=== PATIENT | male | born 1990 | race African-American/Black ===

== ENCOUNTER 2018-11-15 10:29 | Emergency (ER) | payer OTHER ==
[2018-11-15] MEDS ORDERED: ALBUTEROL 2.5 MG/3 ML NEB SOL ONE (11:11)
--- NOTE | 2018-11-15 11:15 | RAD REPORT ---
EXAM DESCRIPTION: RAD - Chest Pa And Lat (2 Views) - 11/15/2018 11:04 am CLINICAL HISTORY: Cough;Congestion Chest pain. COMPARISON: <Comparisons> FINDINGS: The lungs are clear. The heart is normal in size. No displaced fractures. IMPRESSION: No acute or concerning finding suspected.
--- NOTE | 2018-11-15 12:25 | ER ---
Nurse's Notes [facility] Name: Eboni Hooker Age: 28 yrs Sex: Male : 1990 Arrival Date: 11/15/2018 Time: 10:31 Bed 20 Private MD: Diagnosis: Cough Presentation: 11/15 10:48 Presenting complaint: Patient states: cough, congestion, chest tightness X 3 days, iw fever yesterday. Transition of care: patient was not received from another setting of care. Onset of symptoms was November 11, 2018. Risk Assessment: Do you want to hurt yourself or someone else? Patient reports no desire to harm self or others. Initial Sepsis Screen: Does the patient meet any 2 criteria? No. Patient's initial sepsis screen is negative. Does the patient have a suspected source of infection? No. Patient's initial sepsis screen is negative. Care prior to arrival: None. 10:48 Method Of Arrival: Ambulatory iw 10:48 Acuity: JON 4 iw Historical: - Allergies: 10:49 No Known Allergies; iw - Home Meds: 10:49 None [Active]; iw - PMHx: 10:49 None; iw - PSHx: 10:49 None; iw - Immunization history:: Adult Immunizations up to date. - Social history:: Smoking status: Patient/guardian denies using tobacco. - Ebola Screening: : Patient negative for fever greater than or equal to 101.5 degrees Fahrenheit, and additional compatible Ebola Virus Disease symptoms Patient denies exposure to infectious person Patient denies travel to an Ebola-affected area in the 21 days before illness onset No symptoms or risks identified at this time. Screenin:15 Abuse screen: Denies threats or abuse. Nutritional screening: No deficits noted. em Tuberculosis screening: No symptoms or risk factors identified. Fall Risk None identified. Assessment: 11:15 General: Appears in no apparent distress. uncomfortable, Denies fever. Pain: Complains em of pain in throat Pain currently is 3 out of 10 on a pain scale. Neuro: Level of Consciousness is awake, alert, obeys commands, Oriented to person, place, time, situation. Cardiovascular: Capillary refill < 3 seconds Patient's skin is warm and dry. Respiratory: Reports cough that is productive, pain with cough Airway is patent Respiratory effort is even, unlabored, Respiratory pattern is regular, symmetrical. EENT: Nares with drainage noted Reports nasal discharge. Derm: Skin is intact, is healthy with good turgor, Skin is pink, warm \T\ dry. Musculoskeletal: Range of motion: intact in all extremities. 12:30 Reassessment: Patient appears in no apparent distress at this time. Patient and/or em family updated on plan of care and expected duration. Pain level reassessed. Patient is alert, oriented x 3, equal unlabored respirations, skin warm/dry/pink. Vital Signs: 10:49 BP 120 / 76; Pulse 92; Resp 16; Temp 98.9; Pulse Ox 98% on R/A; Weight 104.33 kg; iw Height 6 ft. 0 in. (182.88 cm); Pain 3/10; 12:00 BP 126 / 81; Pulse 78; Resp 18; Pulse Ox 99% on R/A; em 10:49 Body Mass Index 31.19 (104.33 kg, 182.88 cm) iw ED Course: 10:31 Patient arrived in ED. as 10:34 Lottie Henderson FNP-C is PHCP. kb 10:34 Rakan Lemus MD is Attending Physician. kb 10:48 Triage completed. iw 10:49 Arm band placed on. iw 10:53 Sarath David LVN is Primary Nurse. em 10:59 Chest Pa And Lat (2 Views) XRAY In Process Unspecified. EDMS 11:15 Patient has correct armband on for positive identification. Bed in low position. Call em light in reach. Adult w/ patient. Pulse ox on. NIBP on. 11:20 Flu and/or RSV swab sent to lab. Strep swab sent to lab. em 12:42 No provider procedures requiring assistance completed. Patient did not have IV access em during this emergency room visit. Administered Medications: 11:19 Drug: Albuterol 2.5 mg Route: Inhalation; em 11:50 Follow up: Response: No adverse reaction em Outcome: 12:24 Discharge ordered by . kb 12:42 Discharged to home ambulatory. em 12:42 Condition: good 12:42 Discharge instructions given to patient, Instructed on discharge instructions, follow up and referral plans. medication usage, Demonstrated understanding of instructions, follow-up care, medications, Prescriptions given X 1. 12:45 Patient left the ED. em Signatures: Dispatcher [employer] Lottie Alfaro, COUNTY DEMONSTRATOR-C COUNTY DEMONSTRATOR-Ckb Sarath David, ALLIANCES CONSULTANT ALLIANCES CONSULTANT Ifeoma Duarte Irene, RN RN iw
--- NOTE | 2018-11-15 12:25 | EDPHYS ---
Physician Documentation [facility] Name: Eboni Hooker Age: 28 yrs Sex: Male : 1990 Arrival Date: 11/15/2018 Time: 10:31 Bed 20 Private MD: ED Physician Rakan Lemus HPI: 11/15 12:23 This 28 yrs old Black Male presents to ER via Ambulatory with complaints of Cough. kb 12:23 The patient or guardian reports cough, that is intermittent, described as moderate, kb with no sputum. Onset: The symptoms/episode began/occurred 2 month(s) ago. Severity of symptoms: At their worst the symptoms were moderate, in the emergency department the symptoms are unchanged. Modifying factors: The symptoms are alleviated by nothing, the symptoms are aggravated by nothing. Associated signs and symptoms: Pertinent positives: rhinorrhea, Pertinent negatives: chest pain, diarrhea, ear ache, fever, nausea, sore throat, vomiting. The patient has not experienced similar symptoms in the past. The patient has been recently seen by a physician:. Pt reports cough and congestion for 2 months. Got better last week and symptoms returned a few days ago. Went to the [facility] and they prescribed mucinex.. Historical: - Allergies: 10:49 No Known Allergies; iw - Home Meds: 10:49 None [Active]; iw - PMHx: 10:49 None; iw - PSHx: 10:49 None; iw - Immunization history:: Adult Immunizations up to date. - Social history:: Smoking status: Patient/guardian denies using tobacco. - Ebola Screening: : Patient negative for fever greater than or equal to 101.5 degrees Fahrenheit, and additional compatible Ebola Virus Disease symptoms Patient denies exposure to infectious person Patient denies travel to an Ebola-affected area in the 21 days before illness onset No symptoms or risks identified at this time. ROS: 12:23 Constitutional: Negative for fever, chills, and weight loss, Neck: Negative for injury, kb pain, and swelling, Cardiovascular: Negative for chest pain, palpitations, and edema, Abdomen/GI: Negative for abdominal pain, nausea, vomiting, diarrhea, and constipation, Back: Negative for injury and pain, : Negative for injury, bleeding, discharge, and swelling, MS/Extremity: Negative for injury and deformity, Skin: Negative for injury, rash, and discoloration, Neuro: Negative for headache, weakness, numbness, tingling, and seizure. 12:23 ENT: Positive for rhinorrhea, sinus congestion. 12:23 Respiratory: Positive for cough, Negative for dyspnea on exertion, hemoptysis, orthopnea, pleurisy, shortness of breath, sputum production, wheezing. Exam: 12:23 Constitutional: This is a well developed, well nourished patient who is awake, alert, kb and in no acute distress. Head/Face: Normocephalic, atraumatic. ENT: Nares patent. No nasal discharge, no septal abnormalities noted. Tympanic membranes are normal and external auditory canals are clear. Oropharynx with no redness, swelling, or masses, exudates, or evidence of obstruction, uvula midline. Mucous membranes moist. Neck: Trachea midline, no thyromegaly or masses palpated, and no cervical lymphadenopathy. Supple, full range of motion without nuchal rigidity, or vertebral point tenderness. No Meningismus. Chest/axilla: Normal chest wall appearance and motion. Nontender with no deformity. No lesions are appreciated. Cardiovascular: Regular rate and rhythm with a normal S1 and S2. No gallops, murmurs, or rubs. Normal PMI, no JVD. No pulse deficits. Respiratory: Lungs have equal breath sounds bilaterally, clear to auscultation and percussion. No rales, rhonchi or wheezes noted. No increased work of breathing, no retractions or nasal flaring. Abdomen/GI: Soft, non-tender, with normal bowel sounds. No distension or tympany. No guarding or rebound. No evidence of tenderness throughout. Skin: Warm, dry with normal turgor. Normal color with no rashes, no lesions, and no evidence of cellulitis. MS/ Extremity: Pulses equal, no cyanosis. Neurovascular intact. Full, normal range of motion. Neuro: Awake and alert, GCS 15, oriented to person, place, time, and situation. Cranial nerves II-XII grossly intact. Motor strength 5/5 in all extremities. Sensory grossly intact. Cerebellar exam normal. Normal gait. Vital Signs: 10:49 BP 120 / 76; Pulse 92; Resp 16; Temp 98.9; Pulse Ox 98% on R/A; Weight 104.33 kg; iw Height 6 ft. 0 in. (182.88 cm); Pain 3/10; 12:00 BP 126 / 81; Pulse 78; Resp 18; Pulse Ox 99% on R/A; em 10:49 Body Mass Index 31.19 (104.33 kg, 182.88 cm) iw MDM: 10:46 Patient medically screened. kb 12:22 Data reviewed: vital signs, nurses notes. Data interpreted: Pulse oximetry: on room air kb is 98 %. Interpretation: normal. Counseling: I had a detailed discussion with the patient and/or guardian regarding: the historical points, exam findings, and any diagnostic results supporting the discharge/admit diagnosis, lab results, radiology results, the need for outpatient follow up, a family practitioner, to return to the emergency department if symptoms worsen or persist or if there are any questions or concerns that arise at home. 11/15 10:51 Order name: Flu; Complete Time: 12:05 kb 11/15 10:51 Order name: Strep; Complete Time: 11:48 kb 11/15 10:51 Order name: Chest Pa And Lat (2 Views) XRAY; Complete Time: 11:20 kb 11/15 11:47 Order name: Throat Culture EDMS Administered Medications: 11:19 Drug: Albuterol 2.5 mg Route: Inhalation; em 11:50 Follow up: Response: No adverse reaction em Disposition: 11/15/18 12:24 Discharged to Home. Impression: Cough. - Condition is Stable. - Discharge Instructions: Allergic Rhinitis, Cough, Adult, [id number]. - Prescriptions for Tessalon Perles 100 mg Oral Capsule - take 1 capsule by ORAL route every 8 hours As needed; 15 capsule. - Medication Reconciliation Form, Thank You Letter, Antibiotic Education, Prescription Opioid Use form. - Follow up: Emergency Department; When: As needed; Reason: Worsening of condition. Follow up: Private Physician; When: 2 - 3 days; Reason: Recheck today's complaints, Continuance of care, Re-evaluation by your physician. - Notes: Take an antihistamine with decongestant daily (brinda d, claritin d, or zyrtec d) Signatures: Dispatcher [employer] EDMS Lottie Henderson, JAIR OBJECT ORIENTED DEVELOPER-Sarath Wynn, DUPLICATOR PUNCH SET UP OPERATOR DUPLICATOR PUNCH SET UP OPERATOR em Lisa Sparks RN RN iw Corrections: (The following items were deleted from the chart) 12:25 12:24 11/15/2018 12:24 Discharged to Home. Impression: Allergic rhinitis, unspecified. kb Condition is Stable. Forms are Medication Reconciliation Form, Thank You Letter, Antibiotic Education, Prescription Opioid Use. Follow up: Emergency Department; When: As needed; Reason: Worsening of condition. Follow up: Private Physician; When: 2 - 3 days; Reason: Recheck today's complaints, Continuance of care, Re-evaluation by your physician. kb 12:45 12:25 11/15/2018 12:24 Discharged to Home. Impression: Cough. Condition is Stable. em Discharge Instructions: Allergic Rhinitis, Cough, Adult, [id number]. Prescriptions for Tessalon Perles 100 mg Oral Capsule - take 1 capsule by ORAL route every 8 hours As needed; 15 capsule. and Forms are Medication Reconciliation Form, Thank You Letter, Antibiotic Education, Prescription Opioid Use. Follow up: Emergency Department; When: As needed; Reason: Worsening of condition. Follow up: Private Physician; When: 2 - 3 days; Reason: Recheck today's complaints, Continuance of care, Re-evaluation by your physician. kb
== END 2018-11-15 12:45 | disposition home or self-care (01) ==
LOC: ER 10:29
DX: R05 Cough (principal)
CPT/HCPCS: 71046; 87070; 87081; 87804

== ENCOUNTER 2019-01-17 09:42 | Emergency (ER) | payer OTHER ==
[2019-01-17] MEDS ORDERED: CYCLOBENZAPRINE 10 MG TAB ONE (10:42)
[2019-01-17] MEDS ORDERED: KETOROLAC 30 MG/ML INJ ONE (10:42)
--- NOTE | 2019-01-17 11:00 | EDPHYS ---
Physician Documentation [facility] Name: Eboni Hooker Age: 28 yrs Sex: Male : 1990 Arrival Date: 01/17/2019 Time: 09:45 Bed 17 Private MD: Unknown, Unknown ED Physician Rakan Lemus HPI: 01/17 10:20 This 28 yrs old Black Male presents to ER via Ambulatory with complaints of Neck Pain, cp >24Hrs Old. 10:20 The patient or guardian complains of pain, that is acute, tenderness. The symptoms are cp located on the right side of neck. 10:20 Onset: The symptoms/episode began/occurred 1 week(s) ago. cp 10:20 Associated signs and symptoms: Pertinent positives: tingling, in the right arm, cp Pertinent negatives: constipation, fever, headache, numbness, weakness. Modifying factors: the symptoms are aggravated by movement. Historical: - Allergies: 10:08 No Known Allergies; aj1 - Home Meds: 10:08 None [Active]; aj1 - PMHx: 10:08 None; aj1 - PSHx: 10:08 None; aj1 - Immunization history:: Flu vaccine is up to date. - Social history:: Smoking status: Patient/guardian denies using tobacco. - Ebola Screening: : Patient denies travel to an Ebola-affected area in the 21 days before illness onset. ROS: 10:25 Constitutional: Negative for body aches, chills, fever, poor PO intake. cp 10:25 Eyes: Negative for injury, pain, redness, and discharge. cp 10:25 Neck: Positive for pain with movement, pain at rest, stiffness, tenderness, Negative for swollen nodes. 10:25 Cardiovascular: Negative for chest pain, edema, palpitations. 10:25 Respiratory: Negative for cough, shortness of breath, wheezing. 10:25 Abdomen/GI: Negative for abdominal pain, nausea, vomiting, and diarrhea. 10:25 Back: Negative for pain at rest, pain with movement. 10:25 Neuro: Positive for tingling, of the right arm, Negative for altered mental status, headache, weakness. 10:25 All other systems are negative. Exam: 10:30 Constitutional: The patient appears in no acute distress, alert, awake, well developed, cp well nourished, uncomfortable. 10:30 Head/Face: Normocephalic, atraumatic. cp 10:30 Eyes: Periorbital structures: appear normal, Conjunctiva: normal, no exudate, no injection, Lids and lashes: appear normal, bilaterally. 10:30 ENT: External ear(s): are unremarkable, Ear canal(s): are normal, clear, TM's: dullness, bilaterally, Nose: is normal, Mouth: Lips: moist, Oral mucosa: pink and intact, moist, Posterior pharynx: is normal, airway is patent, no erythema, no exudate, Voice: is normal. 10:30 Neck: External neck: swelling, is not appreciated, tenderness, that is moderate, right lateral neck, C-spine: vertebral tenderness, that is mild, diffusely, crepitus, is not appreciated, ROM/movement: pain, with rotation to the right, Meningeal signs: are not present, nuchal rigidity, is not appreciated, Lymph nodes: no appreciated lymphadenopathy. 10:30 Chest/axilla: Inspection: normal, Palpation: is normal, no crepitus, no tenderness. 10:30 Cardiovascular: Rate: normal, Rhythm: regular, Pulses: Pulses are 2+ in right radial artery and left radial artery. 10:30 Respiratory: the patient does not display signs of respiratory distress, Respirations: normal, no use of accessory muscles, no retractions, no splinting, no tachypnea, labored breathing, is not present, Breath sounds: are clear throughout, no decreased breath sounds, no stridor, no wheezing. 10:30 Abdomen/GI: Exam negative for discomfort, distension, guarding, Inspection: abdomen appears normal. 10:30 Skin: no rash present. 10:30 Neuro: Orientation: to person, place \T\ time. Mentation: is normal, Motor: moves all fours, strength is normal, Sensation: is normal. Vital Signs: 10:08 BP 136 / 96; Pulse 70; Resp 18; Temp 97.4; Pulse Ox 100% on R/A; Weight 104.33 kg (R); aj1 Height 6 ft. 0 in. (182.88 cm) (R); Pain 10/10; 10:08 Body Mass Index 31.19 (104.33 kg, 182.88 cm) aj1 MDM: 10:13 Patient medically screened. cp 10:30 Differential diagnosis: C-Spine Fracture Cervical Disc Herniation Spinal Cord cp Compression Spondylosis torticollis, viral meningitis. 10:58 Data reviewed: vital signs, nurses notes, radiologic studies, plain films. cp 10:58 Test interpretation: by ED physician or midlevel provider: xrays of cervical spine cp negative for fracture. Counseling: I had a detailed discussion with the patient and/or guardian regarding: the historical points, exam findings, and any diagnostic results supporting the discharge/admit diagnosis, radiology results, the need for outpatient follow up, a family practitioner, to return to the emergency department if symptoms worsen or persist or if there are any questions or concerns that arise at home. Response to treatment: the patient's symptoms have mildly improved after treatment, and as a result, I will discharge patient. 01/17 10:20 Order name: XRAY C Spine Ap/lat cp Administered Medications: 10:44 Drug: TORadol 60 mg Route: IM; Site: right gluteus; em 11:12 Follow up: Response: No adverse reaction; Pain is decreased aj 10:45 Drug: Flexeril 10 mg Route: PO; em 11:12 Follow up: Response: No adverse reaction; Pain is decreased aj1 Disposition: 15:10 Co-signature as Attending Physician, Rakan Lemus MD. rn Disposition: 01/17/19 10:59 Discharged to Home. Impression: Strain of muscle, fascia and tendon at neck level. - Condition is Stable. - Discharge Instructions: Neck Exercises, Form - Excuse from Work, School, or Physical Activity. - Prescriptions for lidocaine 5 % Topical adhesive patch,medicated - apply 1 patch by TRANSDERMAL route once daily As needed; 1 box. Cyclobenzaprine 10 mg Oral Tablet - take 1 tablet by ORAL route every 8 hours As needed; 20 tablet. Medrol (Miah) 4 mg Oral Tablets, Dose Pack - take 1 tablet by ORAL route as directed - follow package instructions; 1 packet. - Work release form, Medication Reconciliation Form, Thank You Letter, Antibiotic Education, Prescription Opioid Use form. - Follow up: Private Physician; When: 2 - 3 days; Reason: Worsening of condition. - Problem is new. - Symptoms have improved. Signatures: Dispatcher [employer] Fatoumata Vasquez RN RN aj1 Sarath David, HEAD TURNING MACHINE OPERATOR HEAD TURNING MACHINE OPERATOR Rakan Yarbrough MD MD rn Maurisio Dubose, HA PA cp Corrections: (The following items were deleted from the chart) 11:12 10:59 01/17/2019 10:59 Discharged to Home. Impression: Strain of muscle, fascia and aj1 tendon at neck level. Condition is Stable. Discharge Instructions: Neck Exercises. Prescriptions for lidocaine 5 % Topical adhesive patch,medicated - apply 1 patch by TRANSDERMAL route once daily As needed; 1 box, Cyclobenzaprine 10 mg Oral Tablet - take 1 tablet by ORAL route every 8 hours As needed; 20 tablet. and Forms are Medication Reconciliation Form, Thank You Letter, Antibiotic Education, Prescription Opioid Use. Follow up: Private Physician; When: 2 - 3 days; Reason: Worsening of condition. Problem is new. Symptoms have improved. cp
--- NOTE | 2019-01-17 11:00 | ER ---
Nurse's Notes [facility] Name: Eboni Hooker Age: 28 yrs Sex: Male : 1990 Arrival Date: 01/17/2019 Time: 09:45 Bed 17 Private MD: Unknown, Unknown Diagnosis: Strain of muscle, fascia and tendon at neck level Presentation: 01/17 10:06 Presenting complaint: Patient states: Neck pain for the past week that radiates down to aj1 his right arm, is aggravated by movement. Patient denies injury to neck. Transition of care: patient was not received from another setting of care. Onset of symptoms was December 2018. Risk Assessment: Do you want to hurt yourself or someone else? Patient reports no desire to harm self or others. Initial Sepsis Screen: Does the patient meet any 2 criteria? No. Patient's initial sepsis screen is negative. Does the patient have a suspected source of infection? No. Patient's initial sepsis screen is negative. Care prior to arrival: None. 10:06 Method Of Arrival: Ambulatory aj 10:06 Acuity: JON 4 aj1 Triage Assessment: 10:08 General: Appears in no apparent distress. uncomfortable, Behavior is calm, cooperative, aj1 appropriate for age. Pain: Complains of pain in neck Pain radiates to back and right arm Pain currently is 10 out of 10 on a pain scale. Quality of pain is described as throbbing, Pain began one week ago Is continuous, Aggravated by repositioning. Neuro: Level of Consciousness is awake, alert, obeys commands, Oriented to person, place, time, situation, Moves all extremities. Full function Speech is normal, Facial symmetry appears normal. Cardiovascular: Patient's skin is warm and dry. Respiratory: Airway is patent Respiratory effort is even, unlabored, Respiratory pattern is regular, symmetrical. GI: No signs and/or symptoms were reported involving the gastrointestinal system. : No signs and/or symptoms were reported regarding the genitourinary system. Derm: No signs and/or symptoms reported regarding the dermatologic system. Skin is pink, warm \T\ dry. normal. Musculoskeletal: Circulation, motion, and sensation intact. Range of motion: intact in all extremities, Reports pain in neck. Historical: - Allergies: 10:08 No Known Allergies; aj1 - Home Meds: 10:08 None [Active]; aj1 - PMHx: 10:08 None; aj1 - PSHx: 10:08 None; aj1 - Immunization history:: Flu vaccine is up to date. - Social history:: Smoking status: Patient/guardian denies using tobacco. - Ebola Screening: : Patient denies travel to an Ebola-affected area in the 21 days before illness onset. Screenin:09 Abuse screen: Denies threats or abuse. Denies injuries from another. Nutritional aj1 screening: No deficits noted. Tuberculosis screening: No symptoms or risk factors identified. 11:11 Fall Risk None identified. aj1 Assessment: 10:09 Reassessment: see triage note. aj1 11:11 Reassessment: Patient appears in no apparent distress at this time. No changes from aj1 previously documented assessment. Patient and/or family updated on plan of care and expected duration. Pain level reassessed. Patient is alert, oriented x 3, equal unlabored respirations, skin warm/dry/pink. Vital Signs: 10:08 BP 136 / 96; Pulse 70; Resp 18; Temp 97.4; Pulse Ox 100% on R/A; Weight 104.33 kg (R); aj1 Height 6 ft. 0 in. (182.88 cm) (R); Pain 10/10; 10:08 Body Mass Index 31.19 (104.33 kg, 182.88 cm) aj1 ED Course: 09:45 Patient arrived in ED. ag5 09:45 Unknown, Unknown is Private Physician. ag5 09:48 Sarath David LVN is Primary Nurse. em 10:07 Triage completed. aj1 10:08 Arm band placed on Patient placed in an exam room. aj1 10:09 Patient has correct armband on for positive identification. Bed in low position. Call aj1 light in reach. 10:09 No provider procedures requiring assistance completed. aj1 10:13 Maurisio Dubose PA is PHCP. cp 10:13 Rakan Lemus MD is Attending Physician. cp 10:34 XRAY C Spine Ap/lat In Process Unspecified. EDMS 11:11 Patient did not have IV access during this emergency room visit. aj1 Administered Medications: 10:44 Drug: TORadol 60 mg Route: IM; Site: right gluteus; em 11:12 Follow up: Response: No adverse reaction; Pain is decreased aj1 10:45 Drug: Flexeril 10 mg Route: PO; em 11:12 Follow up: Response: No adverse reaction; Pain is decreased aj1 Outcome: 10:59 Discharge ordered by . aliyah 11:12 Discharged to home aj1 11:12 Condition: good 11:12 Discharge instructions given to patient, Instructed on discharge instructions, follow up and referral plans. no driving heavy equipment, medication usage, Demonstrated understanding of instructions, follow-up care, medications, Prescriptions given X 3. 11:12 Patient left the ED. aj1 Signatures: Dispatcher [employer] Fatoumata Vasquez RN RN aj1 Sarath David, CIVILIAN TECHNICIAN CIVILIAN TECHNICIAN em Maurisio Dubose, PA PA Yohana Flower ag5 Corrections: (The following items were deleted from the chart) 10: 10:08 Neuro: Level of Consciousness is awake, alert, obeys commands, Oriented to aj1 person, place, time, situation, aj1
--- NOTE | 2019-01-17 11:17 | RAD REPORT ---
EXAM DESCRIPTION: RAD - C Spine Ap/Lat - 01/17/2019 10:35 am CLINICAL HISTORY: PAIN Radiculopathy COMPARISON: <Comparisons> FINDINGS: Cervical bodies are normal in height and alignment.No fracture or acute bony process seen. No disc space narrowing. No prevertebral soft tissue thickening or other suspicious soft tissue finding. IMPRESSION: Negative cervical spine examination.
== END 2019-01-17 11:12 | disposition home or self-care (01) ==
LOC: ER 09:42
DX: S16.1XXA Strain of muscle, fascia and tendon at neck level, initial encounter (principal)
CPT/HCPCS: 72040; 96372; 99283